=== PATIENT | female | born 2005 ===

== ENCOUNTER 2024-12-07 18:38 | Emergency (ER) | payer MEDICAID ==
[~2024-12-07] VITALS: Ht 160 cm; Wt 61.4 kg
[2024-12-07 18:44] VITALS: BP 128/65; PULSE 80; RESP 16; TEMP 99; O2SAT 99
[2024-12-07] MEDS: ACETAMINOPHEN 325 MG TABLET PO ONE (19:25)
[2024-12-07] MEDS: LIDOCAINE 5% TRANSDERMAL PATCH TD ONE (19:26)
[2024-12-07] MEDS ORDERED: ACET-2247 PO (20:23)
[2024-12-07] MEDS ORDERED: IBUP-1492 PO (20:23)
[2024-12-07] MEDS ORDERED: LIDO-57 TP (20:23)
== END 2024-12-07 20:49 | disposition home or self-care (01) ==
LOC: EMS 18:38
DX: S20.212A Contusion of left front wall of thorax, initial encounter (principal); V43.52XA Car driver injured in collision with other type car in traffic accident, initial encounter; Y93.89 Activity, other specified; Y92.410 Unspecified street and highway as the place of occurrence of the external cause; Y99.8 Other external cause status
CPT/HCPCS: 99283; 71101; G0238